=== PATIENT | male | born 1985 | race Caucasian/White ===

== ENCOUNTER 2020-04-10 06:57 | Emergency (ER) | payer OTHER ==
[~2020-04-10] VITALS: Ht 188 cm; Wt 145.1 kg
[2020-04-10] MEDS ORDERED: SILVADENE20 GM TOP (08:14)
[2020-04-10] MEDS ORDERED: BACITRACIN1 EACH TOP (08:19)
[2020-04-10] MEDS ORDERED: PEPCID AC20 MG PO (08:19)
[2020-04-10] MEDS ORDERED: IBU600 MG PO (08:19)
== END 2020-04-10 08:46 | disposition home or self-care (01) ==
LOC: ER 06:57
DX: T20.14XA Burn of first degree of nose (septum), initial encounter (principal); T21.11XA Burn of first degree of chest wall, initial encounter; T28.0XXA Burn of mouth and pharynx, initial encounter; T20.17XA Burn of first degree of neck, initial encounter; X10.0XXA Contact with hot drinks, initial encounter; Y93.89 Activity, other specified; Y92.814 Boat as the place of occurrence of the external cause; Y99.8 Other external cause status

== ENCOUNTER 2022-09-20 20:24 | Emergency (ER) | payer OTHER ==
[~2022-09-20] VITALS: Ht 188 cm; Wt 140.6 kg
[~2022-09-20 20:24] MED LIST: BACITRACIN1 EACH TOP; IBU600 MG PO; PEPCID AC20 MG PO; SILVADENE20 GM TOP
== END 2022-09-20 23:32 | disposition home or self-care (01) ==
LOC: ER 20:24
DX: M62.838 Other muscle spasm (principal); V49.88XA Car occupant (driver) (passenger) injured in other specified transport accidents, initial encounter; Y93.89 Activity, other specified; Y92.481 Parking lot as the place of occurrence of the external cause; Z91.013 Allergy to seafood

== ENCOUNTER 2023-01-26 08:18 | Emergency (ER) | payer OTHER ==
[~2023-01-26] VITALS: Ht 188 cm; Wt 131.5 kg
== END 2023-01-26 13:05 | disposition home or self-care (01) ==
LOC: ER 08:18
DX: S01.511A Laceration without foreign body of lip, initial encounter (principal); Y08.89XA Assault by other specified means, initial encounter; Y93.9 Activity, unspecified; Y92.89 Other specified places as the place of occurrence of the external cause; Y99.9 Unspecified external cause status; I10 Essential (primary) hypertension; R68.84 Jaw pain; J34.2 Deviated nasal septum; M27.40 Unspecified cyst of jaw; Z91.013 Allergy to seafood

== ENCOUNTER 2023-01-30 16:24 | Emergency (ER) | payer OTHER ==
[~2023-01-30] VITALS: Ht 188 cm; Wt 131.5 kg
== END 2023-01-30 19:14 | disposition home or self-care (01) ==
LOC: ER 16:24
DX: S01.512A Laceration without foreign body of oral cavity, initial encounter (principal)